=== PATIENT | female | born 1995 | race Caucasian/White ===

== ENCOUNTER 2020-10-24 04:25 | Inpatient (IN) ==
[2020-10-24 06:15] LABS: Bacteria,Urine Occasional /HPF (Few); Bilirubin,Urine Negative (Negative); Blood, Urine Small mg/dL (Negative); Glucose,Urine (UA) Negative (Negative); Ketones,Urine Negative (Negative); Mucus,Urine Occasional /LPF (Occasional); Nitrite,Urine Negative (Negative); Protein,Urine Negative; RBC,Urine 26 /HPF (0-4); Squamous Epithelial Cell,Urine Occasional /HPF (0-10); Urine Appearance Slightly Hazy (Clear); Urine Color Yellow (Yellow); Urine Specific Gravity 1.008 (1.001-1.035); Urine Urobilinogen < 2.0 EU/DL (0.2-1.0)
[2020-10-24 06:20] LABS: Barbiturates Screen,Urine Negative (Negative); Benzodiazepines Screen,Urine Negative (Negative); Cannabinoid Screen,Urine Negative (Negative); Opiate Screen,Urine Negative (Negative); Phencyclidine Screen,Urine Negative (Negative)
[2020-10-24 08:50] LABS: Basophils % 0.2 % (0.0-0.8); Eosinophils % 0.2 % (0.00-10.9); Hematocrit 34.7 VOL% (35.7-47.0); Hemoglobin 11.6 GM/DL (12.0-16.0); Immature Granulocytes % 0.5 %; Immature Granulocytes Absolute 0.07 #; Lymphocytes # 2.9 10*3/uL (1.4-4.0); Lymphocytes % 21.1 % (21.3-54.2); Mean Corpuscular HGB Conc 33.4 GM/DL (32-36); Mean Corpuscular Volume 89.4 FL (87-102); Mean Platelet Volume 11.4 FL (9.6-12.0); Monocytes % 7.3 % (1.7-12.7); Neutrophils % 70.7 % (38.7-73.9); Platelet Count 265 T/CUMM (130-400); Red Blood Count 3.88 MC/CUMM (3.8-5.5); Red Cell Distribution Width 13.2 % (9.3-17.3); White Blood Count 13.6 T/CUMM (4-12)
[2020-10-24 09:00] LABS: INR 0.9; PT Patient Result 10.3 SECS (10.5-12.0); Partial Thromboplastin Time 29.1 SECS (23.9-33.8)
[2020-10-24 09:29] LABS: Albumin 2.5 G/DL (3.4-5.0); Bilirubin,Total 0.6 MG/DL (0.2-1.0); Calcium 9.1 MG/DL (8.5-10.1); Osmolality,Calculated 273.5 MOS/KG (273-304); Potassium 3.7 MMOL/L (3.5-5.1); Total Protein 6.2 G/DL (6.4-8.2)
[2020-10-24 09:45] LABS: HIV Antigen/Antibody Result Nonreactive (Nonreactive); Hepatitis B Surface Ag Quant < 0.10 Index; Hepatitis B Surface Ag Result Non-Reactive (NonReactive)
[2020-10-24] MEDS ORDERED: CITRIC ACID/SODIUM CITRATE 30 ML UDCUP PO ONE (11:01)
[2020-10-24] MEDS ORDERED: FAMOTIDINE 20 MG/2 ML VIAL IV ONE (11:01)
[2020-10-24] MEDS: LACTATED RINGERS 1,000 ML IV SCH (11:33)
[2020-10-24] MEDS ORDERED: KETOROLAC 30 MG/1 ML VIAL ONE (14:54)
[2020-10-24] MEDS ORDERED: ACETAMINOPHEN INJ 1,000 MG/100 ML VIAL IV ONE (14:54)
[2020-10-24] MEDS ORDERED: ONDANSETRON 4 MG/2 ML VIAL ONE (14:54)
[2020-10-24] MEDS ORDERED: BUPIVACAINE SPINAL 0.75% 2 ML AMP SPINAL ONE (14:54)
[2020-10-24] MEDS ORDERED: DEXAMETHASONE 4 MG/1 ML VIAL ONE (14:54)
[2020-10-24] MEDS ORDERED: OXYTOCIN/LR 20 UNIT/1,000 ML BAG IV ONE ×2 (14:55→16:08)
[2020-10-24] MEDS ORDERED: PHENYLEPHRINE 1 MG/10 ML SYRINGE IV ONE ×3 (15:23→15:55)
[2020-10-24] MEDS ORDERED: PHENYLEPHRINE 10 MG/1 ML VIAL IV ONE (15:28)
[2020-10-24] MEDS ORDERED: SODIUM CHLORIDE 0.9% 100 ML IV ONE (15:40)
[2020-10-24] MEDS ORDERED: RHO(D) IMMUNE GLOBULIN 300 MCG SYRINGE IM ONE (16:08)
[2020-10-24] MEDS ORDERED: IBUPROFEN 800 MG TABLET PO PRN (16:08)
[2020-10-24] MEDS ORDERED: ACETAMINOPHEN 325 MG TABLET PO PRN (16:08)
[2020-10-24] MEDS ORDERED: ONDANSETRON 4 MG/2 ML VIAL IV PRN (16:08)
[2020-10-24] MEDS ORDERED: SIMETHICONE CHEW 80 MG TABLET PO PRN (16:08)
[2020-10-24] MEDS ORDERED: MAGNESIUM HYDROXIDE SUSP 30 ML UDCUP PO PRN (16:08)
[2020-10-24 16:13] LABS: Cord Arterial Blood HCO3 21.9 MMOL/L
[2020-10-24 16:17] LABS: Cord Venous Blood PCO2 99.4 MMHG; Cord Venous Blood PO2 < 19.0 MMHG
[2020-10-24] MEDS ORDERED: LACTATED RINGERS 1,000 ML IV SCH (16:30)
[2020-10-24 16:41] LABS: Bacteria,Urine Occasional /HPF (Few); Bilirubin,Urine Negative (Negative); Blood, Urine Negative (Negative); Glucose,Urine (UA) Negative (Negative); Ketones,Urine Negative (Negative); Mucus,Urine Occasional /LPF (Occasional); Nitrite,Urine Negative (Negative); Protein,Urine Negative; RBC,Urine <1 /HPF (0-4); Squamous Epithelial Cell,Urine Occasional /HPF (0-10); Urine Appearance CLEAR (Clear); Urine Color Yellow (Yellow); Urine Specific Gravity 1.013 (1.001-1.035); Urine Urobilinogen < 2.0 EU/DL (0.2-1.0)
[2020-10-24] MEDS: ACETAMINOPHEN 500 MG TABLET PO SCH (22:46)
[2020-10-24] MEDS: DOCUSATE SODIUM 100 MG CAPSULE PO SCH (22:53)
[2020-10-24] MEDS: KETOROLAC 30 MG/1 ML VIAL IV SCH (22:55)
[2020-10-25 00:56] LABS: Basophils % 0.2 % (0.0-0.8); Eosinophils % 0.1 % (0.00-10.9); Hematocrit 33.5 VOL% (35.7-47.0); Immature Granulocytes % 0.9 %; Immature Granulocytes Absolute 0.22 #; Lymphocytes # 1.6 10*3/uL (1.4-4.0); Lymphocytes % 6.4 % (21.3-54.2); Mean Corpuscular HGB Conc 32.8 GM/DL (32-36); Mean Platelet Volume 11.8 FL (9.6-12.0); Monocytes % 3.1 % (1.7-12.7); Neutrophils % 89.3 % (38.7-73.9); Platelet Count 267 T/CUMM (130-400); Red Blood Count 3.68 MC/CUMM (3.8-5.5); White Blood Count 25.7 T/CUMM (4-12)
[2020-10-25 02:08] LABS: Lymphocytes 12 % (20-55); Reactive Lymphocytes 1+; Segmented Neutrophils 87 % (50-85); Total Cells Counted 100
[2020-10-25 02:09] LABS: Hypochromasia Slight; Platelet Estimate Adequate
[2020-10-25] MEDS: ACETAMINOPHEN 500 MG TABLET PO SCH ×2 (04:17→07:23)
[2020-10-25] MEDS: KETOROLAC 30 MG/1 ML VIAL IV SCH (04:25)
[2020-10-25 08:18] LABS: Basophils % 0.2 % (0.0-0.8); Hematocrit 31.5 VOL% (35.7-47.0); Hemoglobin 10.4 GM/DL (12.0-16.0); Immature Granulocytes % 0.9 %; Immature Granulocytes Absolute 0.19 #; Lymphocytes # 3.3 10*3/uL (1.4-4.0); Lymphocytes % 14.8 % (21.3-54.2); Monocytes % 7.6 % (1.7-12.7); Neutrophils % 76.5 % (38.7-73.9); Platelet Count 270 T/CUMM (130-400); Red Blood Count 3.46 MC/CUMM (3.8-5.5); Red Cell Distribution Width 13.2 % (9.3-17.3)
[2020-10-25 08:56] LABS: Band Neutrophils 10 % (0-10); Lymphocytes 21 % (20-55); Platelet Estimate Normal; Segmented Neutrophils 67 % (50-85); Total Cells Counted 100
[2020-10-25 08:57] LABS: Anisocytosis Slight; Macrocytosis Slight
[2020-10-25] MEDS: DOCUSATE SODIUM 100 MG CAPSULE PO SCH ×2 (10:29→21:03)
[2020-10-25] MEDS: MULTIVITAMIN (PRENATAL) TABLET PO SCH (10:29)
[2020-10-25] MEDS ORDERED: KETOROLAC 10 MG TABLET PO SCH (12:00)
[2020-10-25] MEDS ORDERED: KETOROLAC 10 MG TABLET PO PRN (19:00)
[2020-10-26 09:41] VITALS: BP 128/79
[2020-10-26] MEDS: DOCUSATE SODIUM 100 MG CAPSULE PO SCH (10:38)
[2020-10-26] MEDS: MULTIVITAMIN (PRENATAL) TABLET PO SCH (10:38)
== END 2020-10-26 12:35 | disposition home or self-care (01) | DRG 788 ==
LOC: N.LDOUT 04:25 → N.LD 04:27 → N.OB 20:20
PROVIDERS: ADMIT Obstetrics & Gynecology; ATTEND Obstetrics & Gynecology
PROC: LDCSECT (ICD-10-PCS; 2020-10-24 14:38)